=== PATIENT | female | born 2000 | race Caucasian/White ===

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

== ENCOUNTER → 2023-09-18 | Outpatient (REF) | LOC: M PLAIMG 13:38 | PROVIDERS: ATTEND Internal Medicine | DX: R52 Pain, unspecified (principal) ==